=== PATIENT | female | born 1940 | race Caucasian/White ===

== ENCOUNTER 2017-10-17 16:37 | Outpatient (CLI) | payer MEDICARE ==
--- NOTE | 2017-10-18 09:37 | XRAY Report ---
THREE VIEW RIGHT HAND: 10/17/2017 CLINICAL INDICATION: Pain. FINDINGS: AP, lateral, oblique views of the right hand demonstrate an oblique, minimally displaced fracture of the fifth metacarpal shaft. Osteoarthritis is present. No other fracture is identified. IMPRESSION: OBLIQUE, MINIMALLY DISPLACED FRACTURE OF THE FIFTH METACARPAL SHAFT, WITHOUT EVIDENCE OF INTRAARTICULAR EXTENSION. TD: 10/18/2017 09:36
== END 2017-10-17 16:38 | disposition home or self-care (01) ==
LOC: DI 16:37
PROVIDERS: ATTEND Internal Medicine
DX: S62.326A Displaced fracture of shaft of fifth metacarpal bone, right hand, initial encounter for closed fracture (principal)

== ENCOUNTER 2019-08-10 14:01 | Emergency (ER) | payer MEDICARE ==
--- NOTE | 2019-08-10 15:34 | ED Physician Documentation ---
History of Present Illness - Stated complaint Stated Complaint: RT HIP PX - Chief complaint Chief Complaint: Ext Problem - History obtained from History obtained from: Patient - History of Present Illness Timing: How many days ago (2) - Additonal information Additional information: This is an 79-year-old woman who presents with her complaints that she h as pain in her right hip that started 2 days ago sitting and laying on her stomach or her back or not painful at all when she goes to stand up and start walking she has a lot of pain to the lateral upper right hip and it seems now to be radiating a little bit up into her back and down the right posterior lateral thigh. Her fell and over the past week she has been helping him get up and down out of a chair so she is grabbing onto them and pulling him up. She is had prior back surgery with a spinal fusion she does not know what levels. She has not noted that she has any weakness in the legs she is not tripping on the foot. She is using a cane now just because is more comfortable. She took Tylenol with minimal relief. She has not tried any ice or heat to her back or hip. She does have high blood pressure and takes antihypertensives. Review of Systems Constitutional: denies: Fever : denies: Dysuria Skin: denies: Rash Musculoskeletal: reports: Extremity pain, Joint pain Neurologic: denies: Focal weakness, Numbness PD PAST MEDICAL HISTORY - Present Medications Home Medications: Ambulatory Orders Medication Instructions Recorded Confirmed Hydrocodone/Acetaminophen 1 - 2 each PO Q6H PRN #14 tablet 08/10/19 [Hydrocodon-Acetaminophen 5-325] Lisinopril [Prinivil] 10 mg PO 08/10/19 Metoprolol Succinate 25 mg PO 08/10/19 Omeprazole Magnesium [Prilosec] 08/10/19 Pravastatin [Pravachol] 10 mg PO 08/10/19 metFORMIN [Glucophage] 500 mg PO BIDWM 08/10/19 08/10/19 - Allergies Allergies/Adverse Reactions: Allergies Allergy/AdvReac Type Severity Reaction Status Date / Time No Known Drug Allergies Allergy Verified 08/10/19 14:17 PD ED PE NORMAL - Vitals Vital signs reviewed: Yes - General General: Alert and oriented X 3, No acute distress, Well developed/nourished, Other (Very pleasant overweight 79-year-old woman who is not any acute distress.) - Extremities Extremities: No deformity, Other (Tender to palpation over the right greater t rochanter of the hip. She has good internal rotation of the hip without any pain in the hip joint. There is a little tenderness with palpation over the right SI joint. There is no swelling and no rash. No bruising. Negative seated straight leg raise. Reflexes are symmetrical at the quadriceps. She has 5 out of 5 ankle dorsiflexion and sensation is intact to light touch through the upper extremities. She was able to push herself up and stand up on the leg can do a winced a little with the transition.) - Neuro Neuro: Alert and oriented X 3, No motor deficit, No sensory deficit Results - Vitals Vitals: Vital Signs - 24 hr 08/10/19 14:15 Heart Rate 74 Respiratory 14 Rate Blood Pressure 147/76 H O2 Saturation 97 Oxygen O2 Source Room air PD MEDICAL DECISION MAKING - ED course ED course: Patient's history and physical are consistent with right hip bursitis the possibility this could be some sciatica as well. See no indication for plain imaging at this time. Patient is encouraged to use Aleve 1 tablet twice a day. Apply ice to the area that sore on the lateral aspect of the right thigh. She was given a prescription for a few hydrocodone tablets to use if needed for pain but cautioned to be careful that these could make her a little bit unsteady and at higher risk for fall. She Fritz has an appointment scheduled with the orthopedist who did her prior back surgery and she plans to keep that appointment especially if the pain is not improving. Departure - Departure Disposition: 01 Home, Self Care Clinical Impression: Painful hip Qualifiers: Laterality: right Qualified Code(s): M25.551 - Pain in right hip Condition: Good Instructions: ED Bursitis Follow-Up: Lala Grant MD [Primary Care Provider] - Prescriptions: Hydrocodone/Acetaminophen [Hydrocodon-Acetaminophen 5-325] 1 - 2 each PO Q6H PRN #14 tablet PRN Reason: pain Comments: Ice to the lateral hip and lower back. Use the cane to help you walk. Take Aleve 1 tablet twice a day. May use the hydrocodone if needed for pain but I would start with just a half or 1 tablet to see if that helps without making you too groggy. No additional Tylenol if you are taking the hydrocodone. Keep the appointment scheduled with the orthopedist or follow-up here with your primary care provider sooner if the pain is worsening, you notice weakness in the leg, you have incontinence of urine or other problems arise.
[2019-08-10 16:20] VITALS: BP 142/74
== END 2019-08-10 16:20 | disposition home or self-care (01) ==
LOC: ED 14:01
DX: M25.551 Pain in right hip (principal); M79.651 Pain in right thigh; I10 Essential (primary) hypertension
CPT/HCPCS: 99282; 99283

== ENCOUNTER 2022-01-11 08:00 | Outpatient (CLI) | payer MEDICARE ==
[2022-01-11 18:30] LABS: BASOPHILS # (AUTO) 0.1 10^3/uL (0.0-0.1); BASOPHILS % (AUTO) 0.9 %; EOSINOPHILS # (AUTO) 0.2 10^3/uL (0.0-0.7); EOSINOPHILS % (AUTO) 2.4 %; HCT - HEMATOCRIT 45.1 % (37.0-47.0); HGB - HEMOGLOBIN 14.6 g/dL (12.0-16.0); LYMPHOCYTES # (AUTO) 3.4 10^3/uL (1.5-3.5); LYMPHOCYTES % (AUTO) 43.5 %; MEAN CORPUSCULAR HEMOGLOBIN 31.2 pg (27.0-31.0); MEAN CORPUSCULAR HGB CONC 32.4 g/dL (32.0-36.0); MEAN CORPUSCULAR VOLUME 96.4 fL (81.0-99.0); MEAN PLATELET VOLUME 11.5 fL (7.9-10.8); MONOCYTES # (AUTO) 0.5 10^3/uL (0.0-1.0); MONOCYTES % (AUTO) 6.3 %; NEUTROPHILS # (AUTO) 3.7 10^3/uL (1.5-6.6); NEUTROPHILS % (AUTO) 46.8 %; PLT - PLATELET COUNT 247 10^3/uL (130-450); RED BLOOD COUNT 4.68 10^6/uL (4.20-5.40); RED CELL DISTRIBUTION WIDTH 12.6 % (12.0-15.0); WHITE BLOOD COUNT 7.9 x10^3/uL (4.8-10.8)
[2022-01-11 18:34] LABS: BILIRUBIN,URINE NEGATIVE (NEGATIVE); GLUCOSE, URINE (UA) NEGATIVE (NEGATIVE); KETONES,URINE (UA) NEGATIVE (NEGATIVE); LEUKOCYTE ESTERASE, URINE NEGATIVE (NEGATIVE); NITRITE,URINE NEGATIVE (NEGATIVE); OCCULT BLOOD,URINE NEGATIVE (NEGATIVE); PH,URINE 5.5 PH (5.0-7.5); PROTEIN,URINE NEGATIVE (NEGATIVE); UROBILINOGEN,URINE 0.2 (NORMAL) E.U./dL (NORMAL)
[2022-01-11 19:06] LABS: BACTERIA,URINE Moderate /HPF (None Seen); CLARITY,URINE CLEAR (CLEAR); CRYSTALS,URINE 3-5 Calcium Oxalate /LPF; RBC,URINE 0-5 /HPF (0-5); SQUAMOUS EPITHELIAL CELL,UR RARE Squamous (<= Few)
[2022-01-11 19:09] LABS: ALBUMIN 3.9 g/dL (3.2-5.5); ALBUMIN/GLOBULIN RATIO 1.1 (1.0-2.2); BILIRUBIN,TOTAL 0.6 mg/dL (0.2-1.0); CALCIUM 9.9 mg/dL (8.5-10.3); CREATININE 0.8 mg/dL (0.4-1.0); TOTAL PROTEIN 7.6 g/dL (6.7-8.2)
[2022-01-11 20:34] LABS: ESTIMATED AVERAGE GLUCOSE 148 mg/dL (70-100); HEMOGLOBIN A1c% 6.8 % (4.27-6.07)
== END 2022-01-11 23:59 | disposition home or self-care (01) ==
LOC: LAB.R 08:00
PROVIDERS: ATTEND Internal Medicine
DX: E11.9 Type 2 diabetes mellitus without complications (principal); R42 Dizziness and giddiness; Z79.899 Other long term (current) drug therapy
CPT/HCPCS: 80053; 81001; 82607; 83036; 85025; 87086

== ENCOUNTER 2022-04-11 10:35 | Outpatient (CLI) | payer MEDICARE ==
--- NOTE | 2022-04-11 17:09 | XRAY Report ---
PROCEDURE: Hand 3 View RT INDICATIONS: R HAND/WRIST PAIN TECHNIQUE: 3 views of the hand(s) acquired. COMPARISON: 3 views of the right hand dated 10/17/2017 FINDINGS: Bones: No acute fracture or dislocation. Severe osteoarthritis is present at the first CMC joint, sim ilar in extent to the 2018 study. Severe osteoarthritis is also present at the second and third DIP j oints as before. There is diffuse interphalangeal joint space narrowing. No periarticular osteopenia or bony erosions. Soft tissues: No suspicious soft tissue calcifications. IMPRESSION: Osteoarthritis overall similar to the 2018 study. No findings to suggest erosive arthritis. Reviewed by: Anne Rowley MD on 04/11/2022 5:08 PM PDT Approved by: Anne Rowley MD on 04/11/2022 5:08 PM PDT Station ID: [id number]
== END 2022-04-11 10:36 | disposition home or self-care (01) ==
LOC: DI 10:35
PROVIDERS: ATTEND Internal Medicine
DX: M25.539 Pain in unspecified wrist (principal); M19.041 Primary osteoarthritis, right hand

== ENCOUNTER 2022-04-20 08:00 | Outpatient (CLI) | payer MEDICARE ==
--- NOTE | 2022-04-20 10:44 | XRAY Report ---
PROCEDURE: Wrist 3 View RT INDICATIONS: RIGHT WRIST/HAND PAIN TECHNIQUE: 3 views of the wrist were acquired. COMPARISON: Hand radiographs dated 04/11/2022 FINDINGS: Bones: No acute fractures or dislocations. No suspicious bony lesions. Redemonstration of severe d egenerative changes involving the first carpometacarpal joint with small marginal lucencies involving the trapezium. There is near complete joint space loss of the first carpometacarpal joint with promi nent marginal osteophytes. There are also degenerative changes of the scaphoid. Scaphoid view: No acute fracture. Scapholunate interval is maintained. Soft tissues: No suspicious soft tissue calcifications. IMPRESSION: Right wrist without acute fracture or dislocation. 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 Sma ll subchondral lucency involving the trapezium which is likely related to degenerative cystic change. However, osseous erosions not excluded. Reviewed by: Foster Valdez MD on 04/20/2022 10:43 AM PDT Approved by: Foster Valdez MD on 04/20/2022 10:43 AM PDT Station ID: [id number]
== END 2022-04-20 23:59 | disposition home or self-care (01) ==
LOC: DI.WOS 08:00
PROVIDERS: ATTEND Physician Assistant Surgical
DX: M19.031 Primary osteoarthritis, right wrist (principal); M18.11 Unilateral primary osteoarthritis of first carpometacarpal joint, right hand

== ENCOUNTER 2023-12-09 08:00 | Outpatient (CLI) | payer MEDICARE ==
[2023-12-09 18:33] LABS: BASOPHILS # (AUTO) 0.1 10^3/uL (0.0-0.1); BASOPHILS % (AUTO) 0.9 %; EOSINOPHILS # (AUTO) 0.2 10^3/uL (0.0-0.7); HCT - HEMATOCRIT 45.4 % (37.0-47.0); HGB - HEMOGLOBIN 14.4 g/dL (12.0-16.0); LYMPHOCYTES # (AUTO) 2.6 10^3/uL (1.5-3.5); LYMPHOCYTES % (AUTO) 36.9 %; MEAN CORPUSCULAR HEMOGLOBIN 30.6 pg (27.0-31.0); MEAN CORPUSCULAR HGB CONC 31.7 g/dL (32.0-36.0); MEAN CORPUSCULAR VOLUME 96.4 fL (81.0-99.0); MEAN PLATELET VOLUME 11.3 fL (7.9-10.8); MONOCYTES # (AUTO) 0.5 10^3/uL (0.0-1.0); MONOCYTES % (AUTO) 6.8 %; NEUTROPHILS # (AUTO) 3.7 10^3/uL (1.5-6.6); PLT - PLATELET COUNT 236 10^3/uL (130-450); RED BLOOD COUNT 4.71 10^6/uL (4.20-5.40); RED CELL DISTRIBUTION WIDTH 12.5 % (12.0-15.0)
[2023-12-09 18:51] LABS: ALBUMIN 4.1 g/dL (3.2-5.5); ALBUMIN/GLOBULIN RATIO 1.5 (1.0-2.2); ALKALINE PHOSPHATASE 81 IU/L (42-121); ALT ALANINE AMINOTRANSFERASE 15 IU/L (10-60); AST ASPARTATE AMINOTRANSFERASE 16 IU/L (10-42); BILIRUBIN,TOTAL 0.6 mg/dL (0.2-1.0); BUN - BLOOD UREA NITROGEN 13 mg/dL (6-20); CARBON DIOXIDE - CO2 30 mmol/L (21-32); CHLORIDE 103 mmol/L (101-111); CHOL/HDL RATIO 3.9 (<4.4); CHOLESTEROL 211 mg/dL; CREATININE 0.8 mg/dL (0.6-1.3); GFR - MDRD 68 (>89); GLUCOSE 142 mg/dL (74-104); HDL CHOLESTEROL 54 mg/dL; LDL CHOLESTEROL,CALCULATED 130 mg/dL; LDL/HDL RATIO 2.4 (<4.4); POTASSIUM 4.2 mmol/L (3.5-4.5); SODIUM 138 mmol/L (135-145); TOTAL PROTEIN 6.9 g/dL (6.4-8.9); TRIGLYCERIDES 133 mg/dL (48-352); VLDL CHOLESTEROL 27 mg/dL
[2023-12-09 18:52] LABS: MICROALBUM/CREATININE RATIO,UR 14.6 ug/mg (<30.0); MICROALBUMIN,URINE 1.2 mg/dL
[2023-12-09 19:02] LABS: THYROID STIMULATING HORMONE 2.49 uIU/mL (0.34-5.60)
[2023-12-09 22:05] LABS: ESTIMATED AVERAGE GLUCOSE 143 mg/dL (70-100); HEMOGLOBIN A1c% 6.6 % (4.27-6.07)
== END 2023-12-09 23:59 | disposition home or self-care (01) ==
LOC: LAB.R 08:00
PROVIDERS: ATTEND Internal Medicine
DX: Z00.00 Encounter for general adult medical examination without abnormal findings (principal); E11.9 Type 2 diabetes mellitus without complications; K21.9 Gastro-esophageal reflux disease without esophagitis; E78.5 Hyperlipidemia, unspecified; I10 Essential (primary) hypertension; M19.90 Unspecified osteoarthritis, unspecified site; C80.1 Malignant (primary) neoplasm, unspecified
CPT/HCPCS: 80053; 80061; 82043; 82570; 82607; 83036; 83721; 84443; 85025